=== PATIENT | male | born 1995 | race Caucasian/White ===

== ENCOUNTER 2018-07-04 09:32 | Emergency (ER) | payer MEDICAID ==
[~2018-07-04] VITALS: Ht 188 cm; Wt 91.3 kg
[2018-07-04 09:34] VITALS: BP 106/72
[2018-07-04] MEDS ORDERED: BACITRACIN ZINC OINT 500U/GM, 0.9 GM ONE (10:39)
== END 2018-07-04 10:50 | disposition home or self-care (01) ==
LOC: ED 09:53
DX: S61.241A Puncture wound with foreign body of left index finger without damage to nail, initial encounter (principal); W21.89XA Striking against or struck by other sports equipment, initial encounter; Y93.89 Activity, other specified; Y92.830 Public park as the place of occurrence of the external cause; Y99.8 Other external cause status
CPT/HCPCS: 99283

== ENCOUNTER 2018-07-06 20:06 | Emergency (ER) | payer MEDICAID ==
[~2018-07-06] VITALS: Ht 182.9 cm; Wt 92.0 kg
[2018-07-06 20:43] LABS: BASOPHILS # (AUTO) 0.02 x10^3/uL (0-0.1); BASOPHILS % (AUTO) 0 % (0-1); EOSINOPHILS # (AUTO) 0.02 x10^3/uL (0-0.4); EOSINOPHILS % (AUTO) 0 % (1-7); LYMPHOCYTES # (AUTO) 2.08 x10^3/uL (1-3.4); LYMPHOCYTES % (AUTO) 18 % (22-44); MD NO; MEAN CORPUSCULAR HEMOGLOBIN 32.2 pg (27.5-34.5); MEAN CORPUSCULAR HGB CONC 34.7 g/dL (33.2-36.2); MEAN CORPUSCULAR VOLUME 92.8 fL (81-97); MEAN PLATELET VOLUME 8.3 fL (7.4-10.4); MONOCYTES # (AUTO) 0.66 x10^3/uL (0.2-0.8); MONOCYTES % (AUTO) 6 % (2-9); NEUTROPHILS # (AUTO) 8.57 x10^3/uL (1.8-6.8); NEUTROPHILS % (AUTO) 76 % (42-75); PLATELET COUNT 289 x10^3/uL (130-400); RED BLOOD COUNT 4.59 x10^6/uL (4.38-5.82)
[2018-07-06 20:46] LABS: ALBUMIN 4.7 g/dL (3.4-5.0); ANION GAP 6 mmol/L (5-15); CALCIUM 9.6 mg/dL (8.5-10.1); CHLORIDE 109 mmol/L (98-107); CREATININE 1.13 mg/dL (0.7-1.3)
[2018-07-06 20:50] LABS: TROPONIN I < 0.015 ng/mL (0.000-0.045)
--- NOTE | 2018-07-06 22:54 | NUR ---
BS REPORT TO GISSELLE Christopher RN. PT CARE TRANSFERRED.
--- NOTE | 2018-07-06 23:05 | NUR ---
PT. ORIGINALLY CAME INTO ED WITH C/O ANXIETY AND CP ALL DAY TODAY "REALLY BAD". PT. STATES TO THIS RN HE HAS BEEN FEELING LIKE TAKING HIS OWN LIFE BY "GOING TO A REMOTE PLACE AND SLITTING MY WRIST". PT. DENIES ANY SA IN THE PAST BUT DOES REPORT SI FOR A LONG TIME. 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 REPORTS "THIS SITUATION HAS CHANGED AND NOW I FEEL LIKE I AM READY TO DO IT." PT. REPORTS HX OF "SEVERE ANXITEY AND DEPRESSION". DOESN'T TAKE ANY MEDICATIONS FOR THIS. PT. REPORTS HE LIVES BY HIMSELF IN AN APARTMENT AND STARTED A NEW JOB TODAY. "[employer] 4 WEEKS AGO" PT. HAS NO OTHER FAMILY IN THE AREA FOR SUPPORT. SAAD HUFFMAN IN TO EVAL PT. AND DISCUSS POC.
[2018-07-06] MEDS ORDERED: LORazepam 1MG TABLET PO ONE (23:30)
[2018-07-06] MEDS ORDERED: LORazepam 1MG TABLET ONE (23:42)
--- NOTE | 2018-07-06 23:44 | NUR ---
PT. MEDICATED PER JUL. PT. REMAINS ON CONTINUOUS MONITORS AT THIS TIME FOR THE C/O CP. NSR ON MONITOR. PT. IS AWARE OF NEED FOR UA AND WATER HAS BEEN PROVIDED. SOCKS AND WARM BLANKET GIVEN. SITTER IN [place] AWARE OF NEED TO MONITOR THIS PT. PT. DENIES ANY FURTHER NEEDS AT THIS TIME. ALL BELONGINGS WERE SECURED IN LOCKER IN 1 BAG.
[2018-07-06 23:47] LABS: SALICYLATE LEVEL < 1.7 mg/dL (2.8-20.0)
[2018-07-06 23:48] LABS: ACETAMINOPHEN < 2 mcg/mL (10-30)
--- NOTE | 2018-07-07 00:37 | NUR ---
PT. UNABLE TO PROVIDE UIRNE SAMPLE STILL. MORE WATER PROVIED. DENIES OTHER NEEDS. GLASS ENGRAVER REMAINS IN PLACE. SITTER IN [place]. NO ACUTE DISTRESS NOTED. PT. REPORTS FEELING THE SAME AFTER ATIVAN. TO HAVE TELEPSYCH EVAL AFTER DOA.
[2018-07-07 01:27] LABS: AMPHETAMINE SCREEN, URINE Negative (Negative); BARBITURATE SCREEN, URINE Negative (Negative); BENZODIAZEPINE SCREEN, URINE Negative (Negative); CANNABINOID SCREEN, URINE Negative (Negative); COCAINE SCREEN, URINE Negative (Negative); METHADONE SCREEN, URINE Negative (Negative); OPIATE SCREEN, URINE Negative (Negative)
--- NOTE | 2018-07-07 01:41 | NUR ---
PT. HAD PROVIDED URINE SAMPLE EARLIER AND IT WAS COLLECTED AND SENT TO LAB. PT. TO BE EVAL BY [facility]. PT. DENIES NEEDS AT THIS TIME.
--- NOTE | 2018-07-07 02:22 | NUR ---
[facility] initiated. Paperwork faxed to [phone].
--- NOTE | 2018-07-07 03:09 | NUR ---
REPORT TO REX BRUNSON TO ASSUME PT. CARE.
--- NOTE | 2018-07-07 04:06 | NUR ---
pt is sleeping vss updated sitter at door pt stated feeling better now
--- NOTE | 2018-07-07 06:18 | NUR ---
pt denied any discomfort vss sitter is at door pt is sleeping
--- NOTE | 2018-07-07 06:55 | NUR ---
given report to kurt carranza [facility] called and will be here at 8 am [phone]
--- NOTE | 2018-07-07 07:26 | NUR ---
pt sleeping in room. room secure. awaiting [facility].
--- NOTE | 2018-07-07 08:04 | NUR ---
[facility] AT BEDSIDE.
[2018-07-07 09:24] VITALS: BP 103/71
--- NOTE | 2018-07-07 09:25 | NUR ---
[facility] assessment complete. vitals taken and breakfast provided. md in room speaking with pt at this time.
== END 2018-07-07 10:25 | disposition home or self-care (01) ==
LOC: ED 23:01
DX: R07.2 Precordial pain (principal); R45.851 Suicidal ideations; F41.1 Generalized anxiety disorder; J45.909 Unspecified asthma, uncomplicated; F32.1 Major depressive disorder, single episode, moderate
CPT/HCPCS: 36415; 71045; 80048; 80307; 80329; 82040; 84484; 85025; 93005; 99284; G0480

== ENCOUNTER 2018-07-07 19:53 | Emergency (ER) | payer MEDICAID ==
[~2018-07-07] VITALS: Ht 188 cm; Wt 71.1 kg
[2018-07-07 20:20] LABS: BASOPHILS # (AUTO) 0.03 x10^3/uL (0-0.1); BASOPHILS % (AUTO) 0 % (0-1); EOSINOPHILS # (AUTO) 0.06 x10^3/uL (0-0.4); EOSINOPHILS % (AUTO) 1 % (1-7); LYMPHOCYTES # (AUTO) 2.43 x10^3/uL (1-3.4); LYMPHOCYTES % (AUTO) 24 % (22-44); MD NO; MEAN CORPUSCULAR HGB CONC 34.4 g/dL (33.2-36.2); MEAN CORPUSCULAR VOLUME 93.2 fL (81-97); MEAN PLATELET VOLUME 8.1 fL (7.4-10.4); MONOCYTES # (AUTO) 0.62 x10^3/uL (0.2-0.8); MONOCYTES % (AUTO) 6 % (2-9); NEUTROPHILS # (AUTO) 7.08 x10^3/uL (1.8-6.8); NEUTROPHILS % (AUTO) 69 % (42-75); PLATELET COUNT 291 x10^3/uL (130-400); RED BLOOD COUNT 4.59 x10^6/uL (4.38-5.82); RED CELL DISTRIBUTION WIDTH 13.1 % (9.4-14.8)
[2018-07-07 20:33] LABS: ALANINE AMINOTRANSFERASE 33 U/L (12-78); ALBUMIN 4.3 g/dL (3.4-5.0); ANION GAP 6 mmol/L (5-15); CALCIUM 9.1 mg/dL (8.5-10.1); CHLORIDE 109 mmol/L (98-107); CREATININE 1.09 mg/dL (0.7-1.3); SALICYLATE LEVEL 2.1 mg/dL (2.8-20.0)
[2018-07-07 20:36] LABS: ALKALINE PHOSPHATASE 70 U/L (45-117); BILIRUBIN,TOTAL 0.5 mg/dL (0.2-1.0); TOTAL PROTEIN 7.5 g/dL (6.4-8.2)
[2018-07-07 20:37] LABS: ACETAMINOPHEN < 2 mcg/mL (10-30)
--- NOTE | 2018-07-07 20:37 | NUR ---
FIRST CONTACT WITH PT. PT C/O BILATERAL CP/SI SINCE YESTERDAY. PT HAS HX OF ANXIETY. PT WAS SEEN HERE YESTERDAY WITH SAME REASON. PT'S AOX4. RESPS EVEN AND UNLABORED. ALL MONITORS IN PLACE. NSR ON DISC PAD PLATE FILLER RATE 90'S AT THIS TIME. PA AT BEDSIDE TO ASSESS.
--- NOTE | 2018-07-07 20:40 | NUR ---
ALL BELONGINGS PUT INTO 1 BAG AND PUT INTO LOCKER.
--- NOTE | 2018-07-07 20:42 | NUR ---
PT AMB TO BR AND BACK TO ROOM WITH STEADY GAIT. UA SENT.
[2018-07-07] MEDS ORDERED: LORazepam 1MG TABLET ONE (20:50)
--- NOTE | 2018-07-07 20:53 | NUR ---
PT MEDICATED PER EMAR. PT TOLERATED WELL. PT'S AOX4. RESPS EVEN AND UNLABORED.
[2018-07-07 20:56] LABS: AMPHETAMINE SCREEN, URINE Negative (Negative); BARBITURATE SCREEN, URINE Negative (Negative); BENZODIAZEPINE SCREEN, URINE Negative (Negative); CANNABINOID SCREEN, URINE Negative (Negative); COCAINE SCREEN, URINE Negative (Negative); METHADONE SCREEN, URINE Negative (Negative); OPIATE SCREEN, URINE Negative (Negative)
[2018-07-07] MEDS ORDERED: LORazepam 1MG TABLET PO ONE (21:00)
--- NOTE | 2018-07-07 22:57 | NUR ---
PT RESTING IN [facility]. PT'S AOX4. RESPS EVEN AND UNLABORED. ALL MONITORS IN PLACE. CALL LIGHT WITHIN REACH.
--- NOTE | 2018-07-07 23:41 | NUR ---
PT RESTING IN [facility]. PT PROVIDED WARM BRANCKET AT THIS TIME.
--- NOTE | 2018-07-08 01:02 | NUR ---
TP RN: PACKET FAXED TO [facility] W/ CONFIRMATION.
--- NOTE | 2018-07-08 01:15 | NUR ---
pt sleeping in [facility]. resps even and unlabored. resps even and unlabored. all monitors in place. call light within reach. sitter monitoring from hallway for safety.
--- NOTE | 2018-07-08 02:09 | NUR ---
report given to tele psych consult by phone at this time. all questions answered.
[2018-07-08 02:13] VITALS: BP 90/54
--- NOTE | 2018-07-08 02:13 | NUR ---
pt [facility] in [facility]. resps even and unlabored. all monitors in place. call light within reach. sitter monitoring from [facility] for safety.
--- NOTE | 2018-07-08 03:05 | NUR ---
PT TRANSFERRED [facility] BY EMS.
== END 2018-07-08 03:14 | disposition other institution (70) ==
LOC: ED 22:13 → UNDOADMOB 07-08 01:07 → EDIP 07-08 01:07 → ED 07-08 03:14
DX: R45.851 Suicidal ideations (principal); R07.9 Chest pain, unspecified; F41.9 Anxiety disorder, unspecified
CPT/HCPCS: 36415; 80053; 80307; 80329; 85025; 93005; 99284; G0480